=== PATIENT | female | born 1960 | race Asian ===

== ENCOUNTER → 2016-12-21 | Outpatient (CLI) | payer OTHER | LOC: BRMIMAGING 14:22 | PROVIDERS: ATTEND Physician Assistant Medical | DX: S92.812A Other fracture of left foot, initial encounter for closed fracture (principal); S93.432D Sprain of tibiofibular ligament of left ankle, subsequent encounter | CPT/HCPCS: 73610-PO; 73630-PO ==

== ENCOUNTER → 2017-01-12 | Outpatient (CLI) | payer OTHER | LOC: BRMIMAGING 10:52 | PROVIDERS: ATTEND Physician Assistant Medical | DX: Z12.31 Encounter for screening mammogram for malignant neoplasm of breast (principal) | CPT/HCPCS: G0202 ==

== ENCOUNTER → 2018-01-16 | Outpatient (CLI) | payer OTHER | LOC: BRMIMAGING 07:42 | PROVIDERS: ATTEND Physician Assistant Medical | DX: Z12.31 Encounter for screening mammogram for malignant neoplasm of breast (principal) ==